=== PATIENT | female | born 1990 | race Caucasian/White ===

== ENCOUNTER 2016-07-20 08:54 | Emergency (ER) | payer MEDICAID ==
[~2016-07-20] VITALS: Ht 162.6 cm; Wt 94.3 kg
[~2016-07-20 08:54] MED LIST: ACHD5005 PO; AMX500CRX; BRIM5DRO7 OD; CEPH500C PO; CYCL1DRO OU; CYCLOSPORIN; EYE; HYDR-3583 PO; IBP600T1 PO; LMT25T; NITR-65 PO; ONDA-42 SL; ONDAN4ODT PO; OXYC-12 PO; PRD20T PO; PREN-83 PO; PRM25T PO; RESTASIS EYE GTTS; SERUM TEARS; SULF1TAB38 PO; [UNRECOGNIZED DRUG - CODE] OU; [UNRECOGNIZED DRUG - CODE] OU; [UNRECOGNIZED DRUG - OTHER] OP
--- OUTSIDE RECORDS SUMMARY | 2016-07-20 08:59 | XMS REPORT | Continuity of Care Document ---
Author Author [facility] Organization [facility] Address Unknown Phone Unavailable Care Team Providers Care Arch Support Maker Name Role Phone Shanique Toscano PCP [phone] Source Comments Some departments are not documenting in the electronic medical record. If you do not see the information that you expected, contact Release of Information in the Health Information Management department at [phone] for further assistance in locating additional records.[facility] Active Allergies and Adverse Reactions Allergen Noted Date Severity Reactions Comments Acyclovir 07/07/2012 RASH Bactrim 01/25/2012 RASH Invega 01/11/2012 HIVES Lamictal 07/17/2007 High RASH TENS blindness Pcn 01/11/2012 HIVES Current Medications Prescription Sig. Disp. Refills Start End Date Status Date SODIUM CHLORIDE OP Place into or around Active eye(s). lifitegrast (XIIDRA) 5 % Apply 1 Drop to both eyes 60 Each 6 07/07/19 Active dpet twice daily. Indications: 17 TEAR FILM INSUFFICIENCY ONDANSETRON HCL (ZOFRAN Take by mouth. 07/07/19 Discontin PO) 17 ued norethindrone Take 1 Tab by mouth 07/07/19 Discontin (contraceptive) daily. 17 ued (MICRONOR) 0.35 mg tablet Active Problems Problem Noted Date Dry eye syndrome 07/07/2016 Overview: Post Huber Servando (TEN) Fina 7,7 07/07/16 L ast Assessment & Plan: More tears than expected, but using many vials of NaCl daily P--try xiidra BID OU Continue Ats Encounter for long-term (current) use of other medications 06/23/2012 Encounter for long-term (current) use of steroids 06/23/2012 Vitamin D deficiency 06/23/2012 Post term , delivered 04/26/2012 Overview: Julian born on 04/06/2012 and discharged 3 days after caesarean section Gestational diabetes mellitus 03/09/2012 Overview: Insulin 5x/day 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 Off systemic immunosuppression OCT shows thinning to near the limbus. Large vessels P--discussed large lamellar graft (manual) as first step toward PKP if needed for OS She will decide. Status post corneal transplant 01/12/2012 Overview: - patient underwent PKP OD on 01/11/2012 after corneal perforation secondary to huber servando syndrome - Repeat PKP OD (7.25/6.0) within earlier graft 02/03/12. No AMT used. - Repeat PKP OD (8.50/7.75) OD with excision of iris. Single layer AMT sutured. 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 Most Recent Encounters Date Type Specialty Providers Description 07/07/2016 Office Visit Ophthalmology Aron Elmore MD Huber- Servando syndrome (HCC) (Primary Dx); Dry eye syndrome, bilateral; Corneal pannus of right eye; 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, unspecified laterality; Status post corneal transplant Social History Tobacco Use Types Packs/Day Years Used Date Never Smoker Smokeless Tobacco: Never Used Alcohol Use Drinks/Week oz/Week Comments No Last Filed Vital Signs Vital Sign Reading Time Taken Blood Pressure 99/65 02/18/2015 3:08 PM CDT Pulse 90 02/18/2015 3:08 PM CDT Temperature 36.1 C (97 F) 05/08/2013 3:03 PM [employer] Respiratory Rate 18 05/08/2013 3:03 PM [employer] Height 1.626 m (5' 4") 07/07/2016 12:38 PM [employer] Weight 90.719 kg (200 lb) 07/07/2016 12:38 PM [employer] Body Mass Index 34.31 07/07/2016 12:38 PM [employer] Oxygen Saturation 98% 06/07/2012 8:28 AM [employer] Plan of Care Date Type Specialty Providers Description 07/12/2017 Appointment Ophthalmology Aron Elmore MD [address] [place] [address] [phone] (Fax) Health Maintenance Due Date Last Done Comments Physical (Comprehensive) 1997 Exam Hpv Vaccines (#1) 2001 Pertussis Vaccine 2001 Tetanus Vaccine 2007 Cervical Cancer Screening 2011 Influenza Vaccine 02/06/2016 Results from Last 3 Months REVISE EYELASHES, OU-BOTH EYES (07/08/2016 7:51 AM) Narrative Interpretation / Result: Epilated RUL and IGNACIO B-SCAN W/ OR W/O A-SCAN (07/07/2016 1:14 PM) Narrative Testing performed this visit: B scan was performed onboth eyes. I have reviewed and found the following: normal globe contour, normal retina, no evidence of retinal detachment or mass and normal optic nerve shadow.
[2016-07-20] MEDS ORDERED: RT-ALBUTEROL/IPRATROPIUM 3 ML (DUONEB) VIAL INH ONE (10:45)
--- NOTE | 2016-07-20 11:08 | Diagnostic Imaging Report ---
PA and lateral views of the chest. COMPARISON: 07/08/2007. INDICATION: Cough. FINDINGS: There are from mild right perihilar and upper lobe infiltrates. The left lung is clear. The heart size is normal. No effusion or pneumothorax. The mediastinum and sheyla appear unremarkable. IMPRESSION: Mild right perihilar infiltrates. Dictated by: Dictated on workstation # [id number]
--- NOTE | 2016-07-20 11:25 | ED General ---
General Chief Complaint: Cough/Cold/Flu Symptoms Stated Complaint: COUGHING, HURTS TO BREATHE Nursing Triage Note: C/O COUGH FOR 3-4 DAYS WITH FEVER. Nursing Sepsis Screen: Possible Sepsis Risk Source of Information: Patient Exam Limitations: No Limitations History of Present Illness Time Seen by Provider: 09:05 Initial Comments This 26-year-old woman presents with cough 3 days. Cough is productive of thick sputum. She has chest discomfort with cough. She reports fever and chills last night. She has a sore throat. Inspiration is painful. She denies smoking. Wheezes are noted on forced expiration. Allergies and Home Medications Allergies Coded Allergies: sulfamethoxazole (Unverified Allergy, Intermediate, HIVES AND ITCHING, 04/03) trimethoprim (Unverified Allergy, Intermediate, HIVES AND ITCHING, 10/02/08 ) Penicillins (Verified Allergy, Mild, 09/01/11) lamotrigine (Unverified Allergy, Mild, 10/02/08) paliperidone (Unverified Allergy, Mild, 10/02/08) Home Medications Albuterol Sulfate 8.5 Gm Hfa.aer.ad #1 1-4 PUFF IH Q4H PRN PRN SHORTNESS OF BREATH For shortness of air or uncontrolled cough Prescribed by: MEENAKSHI GOULD on 07/20/16 1130 Levofloxacin 750 Mg Tablet #5 750 MG PO DAILY Prescribed by: MEENAKSHI GOULD on 07/20/16 1130 Sodium Cl For Inhalation 3 Ml Vial.neb. 2 DROPS OU NEEDED PRN PRN (Reported ) Constitutional: see HPI EENTM: no symptoms reported other (chronic eye irritation) Respiratory: see HPI Cardiovascular: no symptoms reported Gastrointestinal: no symptoms reported Genitourinary: no symptoms reported Musculoskeletal: no symptoms reported Skin: no symptoms reported Psychiatric/Neurological: No Symptoms Reported Hematologic/Lymphatic: No Symptoms Reported Past Tcxpfiy-Lfjotc-Eesvje Hx Patient Social History Alcohol Use: Denies Use Recreational Drug Use: No Smoking Status: Never a Smoker Recent Foreign Travel: No Contact w/Someone Who Travel: No Recent Infectious Disease Expo: No Recent Hopitalizations: Yes (07/08/2007, EYE SURGERY) Immunizations Up To Date Tetanus Booster (TDap): Unknown Surgeries HX Surgeries: Yes (EYES, DIAG LAP,) Respiratory Hx Respiratory Disorders: No Cardiovascular Hx Cardiac Disorders: No Neurological Hx Neurological Disorders: No Reproductive System Hx Reproductive Disorders: No Genitourinary Hx Genitourinary Disorders: Yes Genitourinary Disorders: Kidney Infection, UTI-Chronic Gastrointestinal Hx Gastrointestinal Disorders: No Musculoskeletal Hx Musculoskeletal Disorders: No Endocrine Hx Endocrine Disorders: No HEENT HX ENT Disorders: Yes (LEGALLY BLIND, BRANDON TOM'S SYNDROME-ALLERGIC REACTION-LAMICTAL) Loss of Vision: Bilateral Cancer Hx Cancer: No Psychosocial Hx Psychiatric Problems: Yes Behavioral Health Disorders: Depression Integumentary HX Skin/Integumentary Disorder: No Blood Transfusions Hx Blood Disorders: No (AUTOIMMUNE ISSUE WITH SARMAD TOM SYNDROME) Adverse Reaction to a Blood Tr: No Family Medical History Family Medial History: FH: brain cancer 19 MOTHER No Family History of: AIDS Abdominal aortic aneurysm Alcoholism Alzheimer's disease Arthritis Cancer of mouth Cardiovascular disease Cataracts Colon cancer Completed stroke Diabetes mellitus Hypertension Kidney disease Myocardial infarction Parkinson's disease Prostate cancer Psychosocial problem Respiratory disorder Seizure disorder Severe allergy Thyroid disease Tuberculosis Visual disorder Physical Exam Vital Signs Capillary Refill : Less Than 3 Seconds General Appearance: No Apparent Distress WD/WN Eyes: Bilateral Eye EOMI, Bilateral Eye Other (chronic eye irritation) HEENT: Normal ENT Inspection Pharynx Normal Respiratory: No Accessory Muscle Use No Respiratory DistressNo Crackles, No Rhonci, No Stridor, Wheezing (with forced expiration) Cardiovascular: Regular Rate, Rhythm No Edema No Murmur Extremity: Normal Inspection Neurologic/Psychiatric: Alert Oriented x3 No Motor/Sensory Deficits Normal Mood/Affect Skin: Normal Color Warm/Dry Progress/Results/Core Measures Results/Orders Micro Results My Orders Medications Given in ED Vital Signs/I&O Blood Pressure Mean: 109 Progress Note : Progress Note DuoNeb treatment was provided. Pneumonia identified on chest x-ray. Diagnostic Imaging Diagonstic Imaging: Xray Plain Films/CT/US/NM/MRI: chest Comments Chest x-ray viewed by me and report reviewed. See report below: NAME: SOLOMON LEONARD [facility] REC#: [id number] PT STATUS: REG ER : 1990 PHYSICIAN: MEENAKSHI ZIEGLER MD ADMIT DATE: 07/20/16/ER Signed Date of Exam:07/20/16 CHEST PA/LAT (2 VIEW) PA and lateral views of the chest. COMPARISON: 07/08/2007. INDICATION: Cough. FINDINGS: There are from mild right perihilar and upper lobe infiltrates. The left lung is clear. The heart size is normal. No effusion or pneumothorax. The mediastinum and sheyla appear unremarkable. IMPRESSION: Mild right perihilar infiltrates. Dictated by: Dictated on workstation # [id number] Dict: 07/20/16 1058 Trans: 07/20/16 1111 KB [id number] Interpreted by: TIGIST CARO MD Electronically signed by: TIGIST CARO MD 07/20/16 1113 Departure Impression Impression: Primary Impression: Pneumonia Qualified Code: J18.9 - Pneumonia, unspecified organism Additional Impression: Bronchospasm Disposition: HOME, SELF-CARE Condition: Improved Departure-Patient Inst. Decision time for Depature: 11:20 Referrals: MELISSA STRONG DO (PCP) Primary Care Physician Patient Instructions: Pneumonia, Adult (DC) Add. Discharge Instructions: Complete the entire course of your antibiotic as prescribed. Use your inhaler as needed for shortness of breath or uncontrolled cough. Follow-up with your primary care provider in 1 to 2 weeks. Return to emergency room if symptoms worsen. All discharge instructions reviewed with patient and/or family. Voiced understanding. Scripts Albuterol Sulfate (Ventolin Hfa Common Canister)8.5 Gm Hfa.aer.ad1-4 Puff IH Q4H PRN SHORTNESS OF BREATH #1 INH For shortness of air or uncontrolled cough Prov:MEENAKSHI ZIEGLER MD 07/20/16 Levofloxacin (Levaquin)750 Mg [id number] Mg PO DAILY #5 TAB Prov:MEENAKSHI ZIEGLER MD 07/20/16 MEENAKSHI ZIEGLER MD Jul 20, 2016 11:25 Bronchospasm Disposition: HOME, SELF-CARE Condition: Improved Departure-Patient Inst. Decision time for Depature: 11:20 Referrals: MELISSA STRONG DO (PCP) Primary Care Physician Patient Instructions: Pneumonia, Adult (DC) Add. Discharge Instructions: Complete the entire course of your antibiotic as prescribed. Use your inhaler as needed for shortness of breath or uncontrolled cough. Follow-up with your primary care provider in 1 to 2 weeks. Return to emergency room if symptoms worsen. All discharge instructions reviewed with patient and/or family. Voiced understanding. Scripts Albuterol Sulfate (Proair Hfa)8.5 Gm Hfa.aer.ad1-4 Puff IH Q4H PRN SHORTNESS OF BREATH #1 INH For shortness of air or uncontrolled cough Prov:MEENAKSHI ZIEGLER MD 07/20/16 Levofloxacin (Levaquin)750 Mg [id number] Mg PO DAILY #5 TAB Prov:MEENAKSHI ZIEGLER MD 07/20/16 MEENAKSHI ZIEGLER MD Jul 20, 2016 11:25
[2016-07-20] MEDS ORDERED: LEVO750T9 PO (11:30)
[2016-07-20] MEDS ORDERED: RT-ALBUINH IH (11:30)
[2016-07-20 11:39] VITALS: BP 130/89
== END 2016-07-20 11:41 | disposition home or self-care (01) ==
LOC: EDUNIT# 08:54 → ER 08:55
DX: J18.9 Pneumonia, unspecified organism (principal); H54.8 Legal blindness, as defined in USA; L51.1 Stevens-Johnson syndrome
CPT/HCPCS: 71020; 87804; 94640; 99282